=== PATIENT | male | born 1985 | race Hispanic/Latino ===

== ENCOUNTER 2018-02-11 11:16 | Emergency (ER) | payer OTHER ==
[2018-02-11 11:25] VITALS: BP 130/79; PULSE 80; RESP 16; TEMP 97.6; O2SAT 99; BMI 29.0
--- NOTE | 2018-02-11 12:23 | ED PDOC ---
HPI: Back Time Seen by Provider: 02/11/18 12:00 Chief Complaint (Nursing): Back Pain Chief Complaint (Provider): BACK PAIN History Per: Patient (32 Y/O MALE HERE WITH UPPER THORACIC PAIN NOTED AFTER CLEARING THROAT. NOTES DIFFICULTY WITH MOVING NECK WITHOUT PAIN. DENIES ANY FALLS/TRAUMATIC INJURY. PATIENT H/O SIMILAR PAIN IN PAST IMPROVED WITH PAIN MEDICATIONS. HAS NOT HAD DIAGNOSTIC IMAGING OF YET. HAS RECEIVED 1 YEAR OF PHYSICAL THERAPY IN PAST WITH IMPROVEMENT. RECENTLY SEEN BY PMD WITH [facility] (4 DAYS AGO) NOTES MINIMAL IMPROVEMENT.) Past Medical History Reviewed: Historical Data, Nursing Documentation, Vital Signs Vital Signs: Last Vital Signs Temp 97.6 F 02/11/18 11:24 Pulse 80 02/11/18 11:24 Resp 16 02/11/18 11:24 BP 130/79 02/11/18 11:24 Pulse Ox 99 02/11/18 11:24 - Family History Family History: States: No Known Family Hx - Home Medications Home Medications: Ambulatory Orders Medication Instructions Recorded Naproxen 375 mg PO Q8 PRN #21 tablet 02/11/18 - Allergies Allergies/Adverse Reactions: Allergies Allergy/AdvReac Type Severity Reaction Status Date / Time No Known Allergies Allergy Verified 02/11/18 12:16 Review of Systems ROS Statement: Except As Marked, All Systems Reviewed And Found Negative Physical Exam - Reviewed Nursing Documentation Reviewed: Yes Vital Signs Reviewed: Yes - Physical Exam Appears: Positive for: Well, Non-toxic, No Acute Distress Head Exam: Positive for: ATRAUMATIC, NORMAL INSPECTION, NORMOCEPHALIC Skin: Positive for: Normal Color, Warm, DRY Eye Exam: Positive for: EOMI, Normal appearance, PERRL ENT: Positive for: Normal ENT Inspection Neck: Positive for: Normal, Painless ROM Cardiovascular/Chest: Positive for: Regular Rate, Rhythm Respiratory: Positive for: CNT, Normal Breath Sounds Gastrointestinal/Abdominal: Positive for: Normal Exam, Soft Back: Positive for: Normal Inspection, Other (TENDERNESS NOTED LEFT PARATHORACIC REGION WORSE WITH LATERAL ROTATION OF NECK.) Extremity: Positive for: Normal ROM Neurologic/Psych: Positive for: Alert, Oriented - ECG O2 Sat by Pulse Oximetry: 99 - Progress ED Course And Treament: Toradol 30 mg IM x 1 dose Disposition - Clinical Impression Clinical Impression: Upper back strain - Patient ED Disposition Is Patient to be Admitted: No - Disposition Disposition: Routine/Home Disposition Time: 12:37 Condition: FAIR Prescriptions: Naproxen 375 mg PO Q8 PRN #21 tablet PRN Reason: Pain, Moderate (4-7) Instructions: Muscle Strain (DC) Forms: [facility] (Japanese)
== END 2018-02-11 13:03 | disposition home or self-care (01) ==
LOC: H.ER 11:16
DX: M54.9 Dorsalgia, unspecified (principal)
CPT/HCPCS: 96372; 99283; J1885